=== PATIENT | female | born 1970 | race African-American/Black ===

== ENCOUNTER 2024-02-18 09:01 | Emergency (ER) | payer OTHER ==
[~2024-02-18] VITALS: Ht 154.9 cm; Wt 116.7 kg
[~2024-02-18 09:01] MED LIST: BACTRIM DS TAB1 EACH PO; CEPHALEXIN500 MG PO; CIPRO500 MG PO; IBUPROFEN200 MG PO; METRONIDAZOLE500 MG PO; TYLENOL325 MG PO; ZANAFLEX4 MG PO
[2024-02-18] MEDS ORDERED: PHENTERMINE H37.5 M1 (09:27)
[2024-02-18] MEDS: ACETAMINOPHEN 325 MG TAB PO ONE (09:45)
[2024-02-18] MEDS: ONDANSETRON HCL 4 MG ORAL DISINTEGRATING TAB PO ONE (09:45)
[2024-02-18] MEDS: AMOXICILLIN/CLAVULANATE K 875 MG TAB PO STA (09:45)
[2024-02-18] MEDS: KETOROLAC TROMETHAMINE 60 MG/2 ML VIAL IM ONE (09:46)
[2024-02-18] MEDS ORDERED: AUGMENTIN 500-1 EACH PO (10:05)
[2024-02-18] MEDS ORDERED: MELOXICAM15 MG PO (10:05)
[2024-02-18 10:14] VITALS: PULSE 72; RESP 16; TEMP 97.3; O2SAT 98
== END 2024-02-18 10:14 | disposition home or self-care (01) ==
LOC: FSED 09:05
DX: R10.32 Left lower quadrant pain (principal); K57.32 Diverticulitis of large intestine without perforation or abscess without bleeding; R11.0 Nausea; E66.9 Obesity, unspecified; I45.6 Pre-excitation syndrome
CPT/HCPCS: 96372; 99283; J1885; Q0162